=== PATIENT | male | born 1990 | race Caucasian/White ===

== ENCOUNTER → 2018-12-05 | Outpatient (CLI) | payer BC ==
[~2018-12-05] MED LIST: TRAMADOL 50 MG50 MG PO
== END | disposition home or self-care (01) ==
LOC: M.PC 07:59
DX: M51.16 Intervertebral disc disorders with radiculopathy, lumbar region (principal); M47.26 Other spondylosis with radiculopathy, lumbar region; G89.29 Other chronic pain; Z98.890 Other specified postprocedural states; Z79.899 Other long term (current) drug therapy

== ENCOUNTER → 2019-02-15 | Outpatient (CLI) | payer BC | END | disposition home or self-care (01) | LOC: M.PC 04:54 | DX: M54.5 Low back pain (principal); M51.16 Intervertebral disc disorders with radiculopathy, lumbar region; M47.26 Other spondylosis with radiculopathy, lumbar region; Z98.890 Other specified postprocedural states; Z79.899 Other long term (current) drug therapy ==